=== PATIENT | female | born 1985 | race Caucasian/White ===

== ENCOUNTER 2018-10-01 08:48 | Emergency (ER) | payer BC ==
[2018-10-01 09:25] LABS: #Basophils 0.1 thou/uL (0.0-0.2); #Eosinphils 0.5 thou/uL (0.0-0.7); #Lymphocytes 2.6 thou/uL (1.20-3.40); #Monocytes 0.5 thou/uL (0.11-0.59); #Neutrophils 4.8 thou/uL (1.40-6.50); %Basophils 1.1 % (0.0-1.0); %Eosinophils 5.4 % (0.0-10.0); %Lymphocytes 30.4 % (21.0-51.0); %Monocytes 5.9 % (0.0-10.0); %Neutrophils 57.2 % (42.0-75.0); Hemoglobin 13.3 g/dL (12.0-16.0); Mean Corpuscular HGB CONC 33.6 g/dL (32.0-36.0); Mean Corpuscular Volume 95.2 fL (78.0-98.0); Mean Platelet Volume 6.5 fL (7.4-10.4); Platelet Count 340 thou/uL (130-400); RBC Distribution Width 10.8 % (11.5-14.5); Red Blood Cell (RBC) Count 4.16 mill/uL (4.20-5.40); White Blood Cell (WBC) Count 8.5 thou/uL (4.8-10.8)
[2018-10-01] MEDS ORDERED: Morphine 4 MG/ML VIAL ONE (09:43)
[2018-10-01] MEDS ORDERED: Ondansetron PF 4 MG/2 ML Vial ONE (09:43)
[2018-10-01 09:46] LABS: ALT (SGPT) 9 U/L (8-55); AST (SGOT) 12 U/L (5-34); Alkaline Phosphatase 54 U/L (40-150); Anion Gap 14 mmol/L (10-20); BUN (Urea Nitrogen) 14 mg/dL (7.0-18.7); Bilirubin, Total 0.4 mg/dL (0.2-1.2); Calc. Creatinine Clearance 0 mL/min (70-130); Calcium 8.9 mg/dL (7.8-10.44); Carbon Dioxide 19 mmol/L (22-29); Chloride 111 mmol/L (98-107); Estimated GFR-MDRD 88; Globulin 2.9 g/dL (2.4-3.5); Glucose 102 mg/dL (70-105); Potassium 3.9 mmol/L (3.5-5.1); Protein, Total 6.9 g/dL (6.0-8.3); Sodium 140 mmol/L (136-145)
[2018-10-01 09:50] LABS: BHCG - Serum Negative (NEGATIVE); Pregs Control Background? CLEAR/WHITE (CLR/WHITE); Pregs Control Bar Appear? YES (CONTROL BAR)
--- NOTE | 2018-10-01 11:17 | ULT ---
EXAM: Transabdominal and transvaginal pelvic ultrasound with Doppler PROVIDED CLINICAL HISTORY: Pelvic pain COMPARISON: None FINDINGS: The uterus measures approximately 5.3 x 2.9 x 4.6 cm and demonstrates a small amount of somewhat circ umscribed endometrial fluid. Uterine endometrial thickness is 4 mm. Right ovary measures approximately 4.1 x 2.6 x 2.4 cm and demonstrates a hyperechoic 3.1 cm mass. Left ovary measures approximately 5.6 x 4.4 x 6.4 cmdemonstrates a 6.4 cm hypoechoic mass.. Grayscale and color Doppler sonography with spectral analysis of the ovarian waveforms demonstrates n ormal flow bilaterally. There is no evidence for free pelvic fluid. IMPRESSION: 1. Bilateral nonsimple ovarian masses. These may represent hemorrhagic cysts versus endometriomas. Ot her etiologies are not excluded. 6-12 week follow-up pelvic ultrasound is recommended. 2. Somewhat circumscribed nonspecific endometrial fluid. Correlate with beta hCG value.
[2018-10-01 11:34] LABS: Bilirubin Negative (Negative); Blood, Urine Negative (Negative); Clarity CLEAR (Clear); Glucose, Urine (Dipstick) Negative (Negative); Leukocyte Negative (Negative); Nitrite Negative (Negative); Protein, Urine (Dipstick) Negative (Neg-Trace); Specific Gravity, Urine 1.014 (1.002-1.036); Urobilinogen 0.2 mg/dL (0.2-1.0)
[2018-10-01 11:37] LABS: Pregnancy Test - Urine (BHCG) Negative (Negative); Pregu Control Background? CLEAR/WHITE (CLR/WHITE); Pregu Control Bar Appear? YES (CONTROL BAR); Specific Gravity 1.014 (1.002-1.036)
--- NOTE | 2018-10-01 18:33 | CON ---
DATE OF CONSULTATION: 10/01/2018 REGULAR PROVIDER: Melva Arreola, certified nurse-marketing strategist. EVALUATING PHYSICIAN: Joss Desai MD CHIEF COMPLAINT: Complaining of lower abdominal pain, brought to the ER. HISTORY OF PRESENT ILLNESS: Ms. Hernandez is a 32-year-old white G0 with a reported last menstrual period of 08/10/2017, who presents to the ER today complaining of acute onset of abdominal pain with associated nausea and diaphoresis. She states she has had a long history of ovarian cyst. She has been seen this year at [facility] and was told in July, she had a 6 cm cyst on her left ovary. In August, she had her IUD removed and was started on Depo-Provera. She states that she was seen there last Tuesday and had a 6.5 cm cyst on her left ovary and then had a new-onset cyst on her right ovary. While she has been seen here in the emergency room, she has been given morphine and she feels markedly better. She rates her pain as only 2 at this point. PAST MEDICAL HISTORY: None. PAST SURGICAL HISTORY: None. CURRENT MEDICATIONS: Depo-Provera, which she states was given to her in mid August. ALLERGIES: CECLOR, WHICH SHE SAYS SHE IS ALLERGIC TO SHE WAS TOLD A CHILD. SOCIAL HISTORY: She drinks only occasionally. She does not smoke or use drugs. FAMILY HISTORY: Remarkable for endometriosis in a sister. REVIEW OF SYSTEMS: She denies fever, chills, change in bowel or bladder habits. PHYSICAL EXAMINATION: VITAL SIGNS: Blood pressure here with me in the ER is 118/76 and her pulse is in the 80s. GENERAL: She is pleasant and in no acute distress. She states she is markedly more comfortable now. ABDOMEN: Soft and nontender to only deep palpation. There is no guarding or rebound. PELVIC: Deferred. LABORATORY DATA: White count 8.5, hemoglobin and hematocrit 13.3 and 39.6, and platelet count 340,000. Sodium 140, potassium 3.9, creatinine 0.76, glucose 102, total bilirubin 0.4, AST and ALT are 12 and 9 respectively. Lipase is 28. Urinalysis shows a specific gravity of 1.014 with negative protein, negative glucose, negative ketones, negative blood, negative nitrites, and negative leukocyte esterase. Her urine test is negative. Pelvic ultrasound done in the ER today shows a 5.3 cm axial uterus with only a small amount of endometrial fluid seen. Endometrial thickness is 4 mm. Right ovary shows a 3.1 cm cyst. The left ovary demonstrates a 6.4 cm cyst. Normal flow is seen to each ovary. There is no evidence of pelvic fluid seen. ASSESSMENT: Bilateral ovarian cysts. PLAN: At this time, I think the patient could be safely discharged to home. There appears to be no acute change on her ultrasound per her description, and there appears to be no evidence of rupture or torsion. She states that she has already been in the early stages of being set up for surgery to evaluate the cyst by laparoscopy. I have asked her to call [facility] [place] in the morning to move forward in that process, and I have given her prescription for Lortab 7.5, #25 one to two p.o. q.4-6 hours p.r.n. pain with no refill. She voices understanding of her discharge instructions and will be sent home. I have communicated this to the emergency room staff. Job ID: [id number]
== END 2018-10-01 12:42 | disposition home or self-care (01) ==
LOC: ERS 08:48
DX: N83.202 Unspecified ovarian cyst, left side (principal)
CPT/HCPCS: 36415; 76856; 80053; 81003; 81025; 83690; 84703; 85025; 86850; 86900; 86901; 96361; 96374; 96375; J2270; J2405

== ENCOUNTER 2018-10-09 09:10 | Outpatient (CLI) | payer BC ==
[2018-10-09 17:02] LABS: Hemoglobin 13.4 g/dL (12.0-16.0); Mean Corpuscular HGB CONC 33.1 g/dL (32.0-36.0); Mean Corpuscular Hemoglobin 31.4 pg (27.0-31.0); Mean Platelet Volume 6.2 fL (7.4-10.4); Platelet Count 443 thou/uL (130-400); RBC Distribution Width 10.9 % (11.5-14.5); Red Blood Cell (RBC) Count 4.26 mill/uL (4.20-5.40)
[2018-10-09 17:10] LABS: BHCG - Serum Negative (NEGATIVE); Pregs Control Background? CLEAR/WHITE (CLR/WHITE); Pregs Control Bar Appear? YES (CONTROL BAR)
== END 2018-10-09 09:11 | disposition home or self-care (01) ==
LOC: LABBT 09:10
PROVIDERS: ATTEND Student in an Organized Health Care Education/Training Program
DX: Z01.812 Encounter for preprocedural laboratory examination (principal); N83.202 Unspecified ovarian cyst, left side; N80.9 Endometriosis, unspecified; R10.2 Pelvic and perineal pain
CPT/HCPCS: 84703; 85027; 86850; 86900; 86901

== ENCOUNTER 2018-10-10 08:03 | Day surgery (SDC) | payer BC ==
[2018-10-09 16:40] VITALS: BMI 39.3
[2018-10-10] MEDS ORDERED: CeleCOXIB 100 MG CAP ONE (08:41)
[2018-10-10] MEDS ORDERED: Gabapentin 300 MG CAP ONE (08:41)
[2018-10-10] MEDS ORDERED: Famotidine/PF 20 mg/2ml Vial ONE ×2 (08:41→11:04)
[2018-10-10] MEDS ORDERED: Midazolam HCl 2 mg/2 ml Vial ONE (08:41)
[2018-10-10] MEDS ORDERED: Bupivacaine HCl 0.5%/Epinephrine 1:200,000/PF 30 ml Vial ONE (10:58)
[2018-10-10] MEDS ORDERED: Fentanyl 100 MCG/2 ML VIAL ONE ×2 (11:04→14:00)
[2018-10-10] MEDS ORDERED: Meperidine HCl/PF 25 MG/ML VIAL ONE (11:04)
[2018-10-10] MEDS ORDERED: Clindamycin/D5W 900 mg/50 ml Premix Bag ONE (11:15)
[2018-10-10] MEDS ORDERED: Levofloxacin 500 mg/D5W 100 ml Premix Bag ONE (11:15)
[2018-10-10] MEDS ORDERED: HYDROcodone/Acetaminophen 5/325 mg Tablet ONE (15:45)
--- NOTE | 2018-10-10 20:24 | OP ---
DATE OF PROCEDURE: 10/10/2018 PREOPERATIVE DIAGNOSES: 1. Pelvic pain. 2. Endometriosis, stage 4. 3. Bilateral endometriomas. POSTOPERATIVE DIAGNOSES: 1. Pelvic pain. 2. Endometriosis, stage 4. 3. Bilateral endometriomas. 4. Adhesive disease. PROCEDURES PERFORMED: Robotic assisted bilateral ovarian cystectomy, excision of endometriosis, lysis of adhesions for 45 minutes, and chromotubation. ANESTHESIA: General endotracheal. AIRCRAFT MECHANIC SURGEON: Becka Conrad PA-C PATHOLOGY: 1. Bilateral ovarian endometriomas. 2. Left round ligament lesion. 3. Right ovarian implant. ESTIMATED BLOOD LOSS: 100 mL. IVF: 1600 mL crystalloid. URINE OUTPUT: 300 mL clear urine. COMPLICATIONS: None. DRAINS: None. FINDINGS: On vaginal exam, cervix is normal-appearing. The uterus sounded to 7 cm. On intraabdominal survey, there were bilateral ovarian endometriomas, the left was much larger than the right. There were filmy, many adhesions in the pelvis. Adhesions of the small bowel to the right ovary and right fallopian tube, of the colon to the left ovary and fallopian tube and uterus that were dense. The left ovary was adherent to the pelvic sidewall posteriorly to the rectum and medially to the uterus. The right ovary was adherent to the lateral pelvic sidewall and medially to the uterus, the bladder, and right paracolic gutter with brown staining. Peritoneal endometriotic implants that were black in appearance were present on the left round ligament as well as on the anterior cul-de-sac x2. The posterior cul-de-sac was obliterated. There was a large amount of clot or endometrium implanted on the right ovary that was sent for final pathology. After lysis of adhesions, the bowel was thoroughly examined and no injury was noted. There was no ureteral injury. The ureters were visualized. Excellent hemostasis following the case. OPERATIVE TECHNIQUE: The patient was taken to operating room, where general anesthesia was obtained without difficulty. The patient was prepped and draped in a sterile fashion in a dorsal lithotomy position. The Archer catheter was placed in the bladder. A speculum was placed in the vagina. The anterior lip of the cervix was grasped with single-tooth tenaculum. The cervix was then dilated with Francis dilators and sounded to 7 cm. The JOHN manipulator was assembled with a 5 cm diagnostic tip and inserted into the uterus and balloon was inflated. Instruments were removed out of the vagina and legs were placed in low lithotomy. Attention was turned to the abdomen. 0.5% Marcaine with epi was infiltrated into the umbilicus and a 12 mm skin incision was made. The Veress needle was passed into the abdomen, noting an opening pressure of 4 mmHg. Pneumoperitoneum was obtained without difficulty. The Veress needle was removed. The 12 mm trocar was advanced into the abdomen and confirmed placement with a robotic camera. Steep Trendelenburg was obtained. The right and left lower quadrant 8 mm robotic trocars were placed under direct visualization after infiltrating with 0.5% Marcaine with epi. A right upper quadrant 11 mm port was placed under direct visualization after infiltrating with anesthetic as well. The robot was then docked. The right robotic arm contained the monopolar scissors and the left robotic arm contained a fenestrated bipolar. The surgeon console took control. The above findings were noted and photodocumentation was performed. The filmy adhesions of the colon to the uterus were incised with the scissors sharply. The spaces were developed with pushing and spreading of the fenestrated and then incising with the clear filmy adhesions. The uterus was oozy. Once the adhesions were lysed, the colon was also taken off the ovary. Once an incision was made on the filmy adhesion, some of the adhesions peeled away. This peeling technique was carried around ensuring not to put undue traction on the bowel or fallopian tubes. Cautery was used to achieve hemostasis on the uterus superficially. The ovary was then freed up medially from the uterus by pushing and spreading and peeling as well as hydrodissection with suction senior network systems engineer, and the ovary was then freed up from the lateral pelvic sidewall by peeling off the ovary from the sidewall. This peeled fairly easily. Once the colon was freed up, the ovary was also freed up from the rectum. This was done very carefully. The small bowel was then taken off the right ovary as well as the fallopian tube. An incision was made in the left ovary, was stabilized, and the chocolate cyst was drained. The cyst wall was then grasped and using traction-countertraction after the scissors were traded out for the needle public transit bus driver, the cyst wall was dissected off the ovary and this was placed in the anterior cul-de-sac and irrigation was performed at the ovary and hemostasis was achieved with the fenestrated. The right ovary was then freed from the pelvic sidewall medially from the uterus using incising as well as pushing and spreading and peeling technique. This ovary was then incised and the chocolate cyst was drained. The cyst wall was also grasped after being stabilized, and the cyst wall was completely removed and also placed in the anterior cul-de-sac. The cyst bed was then irrigated and cauterized. An additional endometriotic implant on the left round ligament was then excised with the scissors and sent for final pathology. There was also a clot or endometrium tissue-like substance that was implanted over the right ovarian capsule that was dissected out. This was adherent to the right ovarian capsule and this was also sent for final pathology. At this time, copious irrigation was performed in the pelvis and additional hemostasis was achieved of the cyst beds mainly, and then the Tisseel was then placed over the raw surfaces as well as the cyst bed. Interceed was placed over the ovarian beds x2, and all instruments removed out of the abdomen. The robot was undocked. The fascia of the camera port was repaired with a 0 Vicryl in a [id number] fashion. The skin was closed with a 4-0 Monocryl in subcuticular fashion. Dermabond was applied. The manipulator was removed out of the vagina and the cervix was visualized and noted to be hemostatic and within normal limits. All instruments removed from the vagina. The Archer catheter was discontinued prior to leaving the OR. The patient tolerated the procedure well. Sponge, lap, and needle counts were correct x2. The patient was taken to recovery room in stable condition. The patient received clindamycin and Levaquin prior to the procedure. Job ID: [id number]
== END 2018-10-10 17:25 | disposition home or self-care (01) ==
LOC: SDC 08:03
PROVIDERS: ATTEND Student in an Organized Health Care Education/Training Program
PROC: 0UB24ZZ Excision of Bilateral Ovaries, Percutaneous Endoscopic Approach (ICD-10-PCS; principal; 2018-10-10)
DX: N83.202 Unspecified ovarian cyst, left side (principal); N80.1 Endometriosis of ovary; N80.3 Endometriosis of pelvic peritoneum
CPT/HCPCS: 88305; J0131; J0670; J0690; J1956; J2175; J2250; J3010; J3490; Q9968; S0028

== ENCOUNTER 2019-08-27 08:33 | Outpatient (CLI) | payer BC ==
--- NOTE | 2019-08-27 09:57 | MRI ---
MRI BRAIN AND SELLA WITH AND WITHOUT CONTRAST: DATE: 08/27/2019 HISTORY: 33-year-old female with hyperprolactinemia TECHNIQUE: Multiplanar, multisequence MRI of the brain obtained pre and post IV injection of gadolinium based co ntrast agent. Thin slice coronal and sagittal sequences through the sella turcica, including precontrast, dynamic postcontrast, and standard delayed postcontrast, sequences. FINDINGS: The ventricles are normal in size and configuration. There is no midline shift or any other evidence of mass effect. There is no extra-axial fluid collection. There is no intra-axial signal abnormality, abnormal enhancement, mass, recent hemorrhage, or restricted diffusion. The pituitary gland measures approximately 11 x 11 x 7 mm, near the upper limits of normal for a maxine ent of this age. There is an approximately 3 x 5 mm region of delayed enhancement demonstrated on one of the early phases of the dynamic sequences, in the left side of the sella turcica., Which could represent a pituitary microadenoma. It is slightly T2 hypointense relative to the rest of the sella turcica. There is no suprasellar mass. Optic chiasm is normal. IMPRESSION: 1. Questionable left-sided pituitary microadenoma. 2. The brain is normal.
[2019-08-27] MEDS ORDERED: Magnevist 469MG/ML 20 ML VIAL ONE (10:05)
== END 2019-08-27 08:34 | disposition home or self-care (01) ==
LOC: MRI 08:33
PROVIDERS: ATTEND Student in an Organized Health Care Education/Training Program
DX: E22.1 Hyperprolactinemia (principal)
CPT/HCPCS: 70553; A9579

== ENCOUNTER 2020-09-19 09:40 | Outpatient (CLI) | payer BC ==
[2020-09-19 10:10] LABS: BHCG - Serum Negative (NEGATIVE); Pregs Control Background? CLEAR/WHITE (CLR/WHITE); Pregs Control Bar Appear? YES (CONTROL BAR)
[2020-09-19] MEDS ORDERED: Iopamidol 300 61% 50 ML VIAL FS ONE (10:12)
== END 2020-09-19 09:41 | disposition home or self-care (01) ==
LOC: RAD 09:40
PROVIDERS: ATTEND Student in an Organized Health Care Education/Training Program
DX: N97.9 Female infertility, unspecified (principal)
CPT/HCPCS: 36415; 58340; 74740; 84703; Q9967